=== PATIENT | female | born 1970 | race Two or more races ===

== ENCOUNTER 2016-10-24 16:04 | Emergency (ER) | payer OTHER, SELFPAY ==
[~2016-10-24] VITALS: Ht 147.3 cm; Wt 72.6 kg
[2016-10-24] MEDS ORDERED: DEXT15CA5 PO (16:20)
[2016-10-24] MEDS ORDERED: MSIR30TA PO (16:20)
[2016-10-24] MEDS ORDERED: CYCL10TA PO (16:20)
[2016-10-24] MEDS ORDERED: MORP-38 PO (16:20)
[2016-10-24] MEDS ORDERED: AUGM875T27 PO (17:27)
[2016-10-24] MEDS ORDERED: AUGMENTIN 875 MG TAB PO ONE (17:30)
[2016-10-24 17:32] VITALS: BP 127/89
== END 2016-10-24 17:39 | disposition home or self-care (01) ==
LOC: M ED 17:37
DX: J01.00 Acute maxillary sinusitis, unspecified (principal)